=== PATIENT | male | born 1985 | race Caucasian/White ===

== ENCOUNTER 2025-07-08 21:03 | Emergency (ER) | payer OTHER, SELFPAY ==
[2025-07-08 21:07] VITALS: BP 138/93; PULSE 94; RESP 16; TEMP 37.2; O2SAT 100; BMI 25.7
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
--- NOTE | 2025-07-08 22:17 | PC.NURSE ---
pt stated he took 3 ibuprofen about 3 hrs ago, states his pain is tolerable at present, states he doesn't really like taking pain medication so he is okay for now. explained to pt that since it was splinted and he was in a position of comfort that the splint and sling would be left in place for now but to call if he needed anything for pain, pt verbalized understanding
[2025-07-08] MEDS: BACITRACIN OINT 0.9 GM PCKT 1 APPLIC TOP (23:17)
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
[2025-07-08 23:51] VITALS: BP 136/88; PULSE 88; RESP 16; O2SAT 100
== END 2025-07-08 23:51 | disposition home or self-care (01) ==
PROVIDERS: Emergency Provider Emergency Medicine
DX: S42.351A Displaced comminuted fracture of shaft of humerus, right arm, initial encounter for closed fracture (principal); S50.812A Abrasion of left forearm, initial encounter; V19.9XXA Pedal cyclist (driver) (passenger) injured in unspecified traffic accident, initial encounter
CPT/HCPCS: 70450; 72125; 73060; 99283; 99284

== ENCOUNTER → 2025-07-14 15:06 | Outpatient (CLI) | payer OTHER, SELFPAY ==
[2025-07-14 15:33] LABS: Add Manual Diff / Slide Review NO; Hematocrit 37.7 % (41-53); Hemoglobin 13.4 g/dL (13.5-17.5); Lymphocytes Absolute Auto 1400 /uL (1100-4500); Mean Corpuscular HGB Conc 35.5 % (30-36); Mean Corpuscular Hemoglobin 29.2 PG (26-34); Mean Corpuscular Volume 82.2 fL (80-100); Platelet Count 252 X10^3/uL (150-400)
[2025-07-14 15:40] LABS: Hemoglobin A1C% w Est Avg Glu 5.8 % (4.0-6.0)
--- NOTE | 2025-07-14 15:40 | EKG_ITS ---
[facility] [id number], [place] [address] Test Date: 2025-07-14 Pat Name: Mark Zambrano Department: [facility] Room: Gender: Male Health Care Recruiter: RM : 1985 Requested By: Order Number: [id number] Reading MD: Arsalan Dow MD Measurements Intervals [place] Rate: 84 P: 41 VT: 156 QRS: 3 QRSD: 94 T: 39 QT: 374 QTc: 441 Interpretive Statements Normal sinus rhythm Electronically Signed On 07-14-2025 16:27:37 PDT by Arsalan Dow MD
[2025-07-14 16:48] LABS: Albumin 4.6 g/dL (3.5-5.0); Blood Urea Nitrogen 16 mg/dL (9-20); Calcium 9.5 mg/dL (8.4-10.2); Carbon Dioxide 27 mmol/L (22-32); Chloride 100 mmol/L (98-107); Estimated Glomerular Filt Rate > 60 mL/min (>60); Glucose 95 mg/dL (70-99); HEMOLYSIS < 15 (0-50); Potassium 4.3 mmol/L (3.4-5.1); Sodium 137 mmol/L (137-145)
[2025-07-14 16:56] LABS: Prealbumin 35.1 mg/dL (17.6-36.0)
[2025-07-14 17:24] LABS: Vitamin D 25 Hydroxy (D3) 29.6 ng/mL (30.0-100.0)
== END ==
PROVIDERS: Visit Provider Orthopaedic Surgery
DX: Z01.818 Encounter for other preprocedural examination (principal); S42.351A Displaced comminuted fracture of shaft of humerus, right arm, initial encounter for closed fracture
CPT/HCPCS: 36415; 80048; 82040; 82306; 83036; 84134; 85025; 93005

== ENCOUNTER 2025-07-19 07:09 | Day surgery (SDC) | payer OTHER, SELFPAY ==
[2025-07-15 07:16] VITALS: BMI 25.7
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
[2025-07-19 08:04] VITALS: BP 129/81; PULSE 94; RESP 16; TEMP 36.5; O2SAT 100; BMI 25.7
[2025-07-19] MEDS: ACETAMINOPHEN 325 MG TABLET 975 MG PO (08:20)
[2025-07-19] MEDS: LACTATED RINGERS 1,000 ML 42 ML IV ×3 (08:21→11:53)
--- NOTE | 2025-07-19 08:23 | PM.PREOP ---
Pre-operative Note COVID-19 COVID-19 status: Not tested Interval Note History & Physical reviewed/Exam performed by Physician: Yes Changes to H&P: No
--- NOTE | 2025-07-19 09:33 | SUR.OPER ---
Supine on padded OR bed, head on pillow, left arm secured on padded arm board at <90 degrees abduction, right arm resting on arm table, legs uncrossed, safety belt at thigh, tape over blanket over lower legs.
[2025-07-19 11:48] VITALS: BP 119/76; PULSE 67; RESP 13; TEMP 36.9; O2SAT 95
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
[2025-07-19 11:54] VITALS: BP 96/56; PULSE 65; RESP 18; O2SAT 97
[2025-07-19 11:59] VITALS: BP 101/58; PULSE 66; RESP 22; TEMP 36.3; O2SAT 97
[2025-07-19] MEDS: LACTATED RINGERS 1,000 ML 120 ML IV (12:07)
== END 2025-07-19 13:50 | disposition home or self-care (01) ==
PROVIDERS: Visit Provider Orthopaedic Surgery
PROC: (CPT 24515; principal; 2025-07-19 09:00)
DX: S42.351A Displaced comminuted fracture of shaft of humerus, right arm, initial encounter for closed fracture (principal); Y93.55 Activity, bike riding
CPT/HCPCS: 24515; 73060; 76000; C1713; J0689; J1100; J2250; J2405; J2704; J3010